=== PATIENT | male | born 1945 | race Caucasian/White ===

== ENCOUNTER 2020-04-17 14:14 | Observation (INO) | payer OTHER ==
[~2020-04-17] VITALS: Ht 175.3 cm; Wt 84.8 kg
[2020-04-17 14:28] VITALS: BP 128/57
--- NOTE | 2020-04-17 14:28 | NUR ---
PT AMBULATED TO BED 4
--- NOTE | 2020-04-17 14:32 | NUR ---
BIB self from home with c/o chest pain today and c/o groin pain x 4 weeks. Pain 8/10 Malagasy speaking only. A, A, Ox4, cooperative, VVS, sinus rhythm in NAD Resp even and unlabored, HOB elevated. Moving all exts w/o difficulty, gait steady Awaiting evaluation by MD Will continue to monitor
[2020-04-17] MEDS ORDERED: NITROGLYCERIN 0.4 MG TAB SL ONE (15:00)
[2020-04-17] MEDS ORDERED: ASPIRIN 325 MG TAB PO ONE (15:00)
[2020-04-17 15:28] LABS: BASOPHILS # (AUTO) 0.1 K/uL (0.00-0.22); BASOPHILS % (AUTO) 1.4 % (0.0-2.0); EOSINOPHILS # (AUTO) 0.4 K/uL (0-0.4); EOSINOPHILS % (AUTO) 6.6 % (0.0-4.0); HEMATOCRIT 36.1 % (36-52); HEMOGLOBIN 12.4 g/dL (12.0-18.0); LYMPHOCYTES # (AUTO) 1.5 K/uL (2.0-11.5); LYMPHOCYTES % (AUTO) 26.2 % (20.5-51.1); MEAN CORPUSCULAR HEMOGLOBIN 32 pg (27-31); MEAN CORPUSCULAR HGB CONC 34 g/dL (33-37); MEAN CORPUSCULAR VOLUME 92.3 fL (80-94); MONOCYTES # (AUTO) 0.5 K/uL (0.8-1.0); MONOCYTES % (AUTO) 9.3 % (1.7-9.3); NEUTROPHILS # (AUTO) 3.2 K/uL (1.8-7.7); NEUTROPHILS % (AUTO) 56.5 % (42.2-75.2); PLATELET COUNT (AUTO) 213 K/uL (140-450); RED BLOOD CELL COUNT(AUTO) 3.91 MIL/uL (4.20-6.10); RED CELL DISTRIBUTION WIDTH 13.9 % (11.6-13.7); WHITE BLOOD COUNT (AUTO) 5.6 K/uL (4.8-10.8)
[2020-04-17 15:47] LABS: ALBUMIN 3.8 g/dL (3.4-5.0); ANION GAP 15.2 (8-16); ASPARTATE AMINOTRANSFERASE 13 U/L (15-37); CHLORIDE 102 mmol/L (98-107); CREATININE 0.9 mg/dL (0.6-1.3); GLUCOSE 123 mg/dL (74-106); LIPASE 96 U/L (73-393); POTASSIUM 3.2 mmol/L (3.5-5.1); SODIUM SERUM 138 mmol/L (136-145); TOTAL BILIRUBIN 0.5 mg/dL (0.0-1.0); UREA NITROGEN, BLOOD 11 mg/dL (7-18)
--- NOTE | 2020-04-17 15:55 | NUR ---
IV started left hand #20g, patient tolerated well. Saline locked
[2020-04-17 16:05] LABS: CREATINE KINASE MB 0.6 ng/mL (0-3.6)
[2020-04-17] MEDS ORDERED: POTASSIUM CHLORIDE 10 MEQ TABER PO ONE (16:15)
--- NOTE | 2020-04-17 16:48 | NUR ---
Patient's at bedside to make arrangements for his admission
--- NOTE | 2020-04-17 17:53 | NUR ---
CONTACT INFORMATION ERIN GARCIA, , KARL [phone]
--- NOTE | 2020-04-17 19:15 | NUR ---
REPORT RECEIVED FROM TERESA MADDOX
--- NOTE | 2020-04-17 19:23 | NUR ---
Detailed report given to VARSHA Carmichael ethylene compressor operator for continuity Orders and meds reviewed, questions answered
--- NOTE | 2020-04-17 19:55 | NUR ---
MD AMBRIZ AT BEDSIDE
[2020-04-17] MEDS ORDERED: ACETAMINOPHEN 325 MG TAB PO PRN (20:35)
[2020-04-17] MEDS ORDERED: DOCUSATE SODIUM 100 MG GELCAP PO PRN (20:35)
[2020-04-17] MEDS ORDERED: HYDROcodone/APAP 7.5/325 MG 1 TAB PO PRN (20:35)
[2020-04-17] MEDS ORDERED: POTASSIUM CHLORIDE 10 MEQ TABER PO PRN (20:35)
[2020-04-17] MEDS ORDERED: guaiFENesin DM 200/20 MG-10 ML 10 ML UDC PO PRN (20:35)
[2020-04-17] MEDS ORDERED: ZOLPIDEM 5 MG TAB PO PRN (20:35)
[2020-04-17] MEDS ORDERED: ONDANSETRON 4 MG/2 ML VIAL IM/IVP PRN (20:35)
[2020-04-17] MEDS ORDERED: NITROGLYCERIN 0.4 MG TAB SL PRN (20:35)
[2020-04-17 20:58] LABS: PROTHROMBIN TIME 10.7 secs (10.8-13.4)
--- NOTE | 2020-04-17 20:59 | NUR ---
PT IS STILL HAVING CHEST DISCOMFORT TO RIGHT SIDE OF CHEST, MEDICATED WITH ADMIT ORDERS FOR NORCO. PAIN 12/21. NO SOB. RESPIRATIONS REGULAR EVEN AND UNLABORED
[2020-04-17] MEDS: METOPROLOL 25 MG TAB PO SCH (21:00)
[2020-04-17 21:07] LABS: CHOL/HDL RATIO 2.9 (1-4.5); FREE T4 (FREE THYROXINE) 1.03 ng/dL (0.76-1.46); MAGNESIUM 2.2 mg/dL (1.8-2.4); PHOSPHORUS 3.4 mg/dL (2.5-4.9); THYROID STIMULATING HORMONE 1.55 uIU/mL (0.34-3.74)
--- NOTE | 2020-04-17 21:15 | NUR ---
RECEIVED CONTINUITY OF CARE FROM ED RN APOLONIA. PT IS AMBULATORY, A/OX3, BREATHING SPONTANEOUSLY ON 02L 02 VIA NC, SATURATING AT 100%. LUNG ARE CTA, ACTIVE BOWEL TONES X4, SKIN IS WARM, DRY, INTACT. PT IS LITHUANIAN SPEAKING WITH LIMITED URDU. VITALS ARE ASSESSED AND WITHIN NORMAL LIMITS. ORIENTED PT TO STAFF, CALL LIGHT, AND ROOM. MRSA SCREEN COMPLETE AND REVIEWED PLAN OF CARE WITH PT. CALL LIGHT IS WITHIN REACH. SAFETY PRECAUTIONS IN PLACE.
--- NOTE | 2020-04-17 21:19 | NUR ---
Patient will be admitted to care of DR AMBRIZ. Admited to TELE. Will go to room 111A. Belongings list completed. Report to POWER MADDOX.
[2020-04-17] MEDS: NACL 0.9% 1,000 ML IV SCH (22:13)
--- NOTE | 2020-04-17 23:06 | NUR ---
PT IS SLEEPING. NO SIGNS OF DISTRESS NOTED.
[2020-04-18] VITALS: BP 96/48
--- NOTE | 2020-04-18 01:11 | NUR ---
PT IS SLEEPING. NO SIGNS OF DISTRESS NOTED.
--- NOTE | 2020-04-18 03:02 | NUR ---
PT IS SLEEPING. NO SIGNS OF DISTRESS NOTED.
[2020-04-18 04:00] VITALS: BP 121/65
--- NOTE | 2020-04-18 04:50 | NUR ---
ASSESSED VITAL SIGNS. VITALS ARE WITHIN NORMAL LIMITS. PT IS IN STABLE CONDITION.
--- NOTE | 2020-04-18 07:00 | NUR ---
RECEIVED HANDOFF REPORT FROM [employer] OPERATIONS INTELLIGENCE OFFICER RN. PT IS GREEK SPEAKING, A&OX4. PT IS ON ROOM AIR. PT HAS ACCESS AT L HAND, 20 G, WITH NORMAL SALINE IS RUNNING AT 60 ML/HR. PT IS AMBULATORY AND SKIN IS INTACT. HOB IS AT 30 DEGREES, BED IN LOW LOCKED POSITION. WILL CONTINUE TO MONITOR CLOSELY.
--- NOTE | 2020-04-18 07:14 | NUR ---
ENDORSED CARE TO AM NURSE. PT IS IN STABLE CONDITION.
[2020-04-18 07:36] LABS: BASOPHILS # (AUTO) 0.1 K/uL (0.00-0.22); EOSINOPHILS # (AUTO) 0.4 K/uL (0-0.4); EOSINOPHILS % (AUTO) 7.2 % (0.0-4.0); HEMATOCRIT 35.8 % (36-52); LYMPHOCYTES # (AUTO) 1.5 K/uL (2.0-11.5); LYMPHOCYTES % (AUTO) 28.3 % (20.5-51.1); MEAN CORPUSCULAR HEMOGLOBIN 31 pg (27-31); MEAN CORPUSCULAR HGB CONC 34 g/dL (33-37); MONOCYTES # (AUTO) 0.4 K/uL (0.8-1.0); NEUTROPHILS # (AUTO) 2.9 K/uL (1.8-7.7); NEUTROPHILS % (AUTO) 55.5 % (42.2-75.2); PLATELET COUNT (AUTO) 206 K/uL (140-450); RED BLOOD CELL COUNT(AUTO) 3.85 MIL/uL (4.20-6.10); WHITE BLOOD COUNT (AUTO) 5.3 K/uL (4.8-10.8)
[2020-04-18 08:00] VITALS: BP 145/71
[2020-04-18] MEDS: METOPROLOL 25 MG TAB PO SCH (08:20)
--- NOTE | 2020-04-18 08:32 | NUR ---
MEDICATIONS ADMINISTERED PER ORDER, PT TOLERATED WELL.
--- NOTE | 2020-04-18 08:42 | NUR ---
PATIENT HAS BEEN SCREENED AND CATEGORIZED MODERATE NUTRITION RISK. PATIENT WILL BE SEEN WITHIN 3-5 DAYS OF ADMISSION. 04/20/20 04/22/[address]
[2020-04-18] MEDS ORDERED: PANTOPRAZOLE 40 MG TABEC PO SCH (09:00)
[2020-04-18] MEDS ORDERED: ECOTRIN 81 MG TABEC PO SCH (09:00)
[2020-04-18] MEDS ORDERED: lisinopriL 5 MG TAB PO SCH (09:00)
[2020-04-18 10:01] LABS: ANION GAP 14.7 (8-16); CHLORIDE 107 mmol/L (98-107); CREATININE 0.9 mg/dL (0.6-1.3); GLUCOSE 97 mg/dL (74-106); POTASSIUM 3.7 mmol/L (3.5-5.1); SODIUM SERUM 142 mmol/L (136-145); UREA NITROGEN, BLOOD 10 mg/dL (7-18)
--- NOTE | 2020-04-18 11:19 | NUR ---
SOCIAL WORK NOTE: Patient's Orientation Unable To Assess Information Provided By ERIN SMITH - SON Comments SW WAS UNABLE TO MEET PATIENT AT BEDSIDE. SW COMPLETED ASSESSMENT WITH PATIENT'S SON, ERIN. Proposal Analyst, Realtionship and Phone Number ERIN GARCIA [phone] Healthcare Power of Agile Java Developer No Does Patient Have a POLST No Identifying Problems No Social Work Triggers Is A Social Work Consult Needed No Mandate Report Filed No Explanation Of Identifying Problems PATIENT IS A 75-YEAR-OLD MALE ADMITTED FOR CHEST PAIN. PATIENT HAS PMHX OF HYPERTENSION AND DYSLIPEDEMIA. ERIN REPORTED PATIENT HAS NO HISTORY OF SUBSTANCE ABUSE OR MENTAL HEALTH. Admitted From Home Pre-Admission Level Of Functioning Status Independent/Ambulatory Prior Resources/Services Used In Last 12 Months No Prior Resources Used Prior DME No Prior DME Used Dialysis Comments ERIN REPORTED THAT PATIENT DOES NOT RECEIVE DIALYSIS. Living Situation Lives With Family House Patient Had Caregiver No Home Support No Caregiver Issues Financial Issues No Known Financial Issue Referral To The Financial Counselor Needed No Factors/Needs No D/C Needs Identified Pt/Rep Participated In Discharge Plan Yes Patient/Family Agress With Discharge Plan Yes Discharge Plan Comments TENTATIVE DISCHARGE PLAN IS FOR PATIENT TO RETURN HOME. DC Plan Status Initiated
--- NOTE | 2020-04-18 11:50 | NUR ---
DC PLANNIN YRS OLD MALE PATIENT WAS ADMITTED FROM HOME WITH A DX OF CHEST PAIN . PT HAS A HX OF HTN, HLD. CXR SHOWED NO ACUTE CARDIOPULMONARY DISEASE. VENOUS DOPPLER NO DVT. STARTED IVF, CONTINUE HOME MEDS. CONSULTED WITH STEAM AND POWER SUPERVISOR DR ROJAS. DC PLAN TO GO HOME WHEN STABLE. CM TO FOLLOW.
[2020-04-18 12:00] VITALS: BP 120/57
--- NOTE | 2020-04-18 12:05 | NUR ---
PT SITTING UP IN BED. BP 120/57, HR 64, TEMP 97.5 ORALLY, O2 98%. WILL CONTINUE TO MONITOR.
[2020-04-18] MEDS: NACL 0.9% 1,000 ML IV SCH (13:35)
[2020-04-18] MEDS ORDERED: ASPI-1822 PO (14:46)
[2020-04-18] MEDS ORDERED: ATOR40TA PO (14:46)
[2020-04-18 16:19] VITALS: BP 126/60
--- NOTE | 2020-04-18 16:30 | NUR ---
PT DISCHARGED AT THIS TIME IN STABLE CONDITION. DISCHARGE INSTRUCTIONS AND PRESCRIPTIONS GIVEN, PT VERBALIZED UNDERSTANDING. BELONGINGS VERIFIED AND RETURNED TO PT. IV SITE REMOVED WITH MINIMAL BLOOD LOSS AND LUMEN INTACT. PNA AND FLU VACCINES REFUSED. ID BANDS REMOVED. PT SIGNED DISCHARGE PAPERWORK. PT ESCORTED OFF UNIT ON FOOT AND PICKED UP IN PRIVATE CARE BY FAMILY MEMBER GOING HOME.
[2020-04-18] MEDS ORDERED: ATORVASTATIN 20 MG TAB PO SCH (17:00)
[2020-04-19 10:22] LABS: T4 (THYROXINE) 6.1 ug/dL (4.5-12.0)
== END 2020-04-18 17:26 | disposition home or self-care (01) ==
LOC: MED 14:14 → MTU 18:11
PROVIDERS: ADMIT Family Medicine; ATTEND Family Medicine
DX: R07.89 Other chest pain (principal); E87.6 Hypokalemia; I73.9 Peripheral vascular disease, unspecified; I10 Essential (primary) hypertension; R94.31 Abnormal electrocardiogram [ECG] [EKG]; E78.5 Hyperlipidemia, unspecified; E78.00 Pure hypercholesterolemia, unspecified; F17.210 Nicotine dependence, cigarettes, uncomplicated; Z79.899 Other long term (current) drug therapy
CPT/HCPCS: 36415; 71045; 80048; 80053; 80061; 82150; 82550; 82553; 83036; 83690; 83735; 83880; 84100; 84439; 84443; 84484; 85025; 85610; 85730; 87081; 93005; 93925; 93970; 96360; 96361; 96372; 99285; G0378; J1644; J7030; Q0092; 84436; 84479

== ENCOUNTER 2021-02-12 13:49 | Emergency (ER) | payer OTHER ==
[~2021-02-12] VITALS: Ht 175.3 cm; Wt 80.7 kg
[~2021-02-12 13:49] MED LIST: ASPI-1822 PO; ATOR40TA PO
[2021-02-12 14:13] VITALS: BP 150/75
[2021-02-12 16:49] LABS: BASOPHILS # (AUTO) 0.1 K/uL (0.00-0.22); BASOPHILS % (AUTO) 0.9 % (0.0-2.0); EOSINOPHILS # (AUTO) 0.2 K/uL (0-0.4); EOSINOPHILS % (AUTO) 2.8 % (0.0-4.0); HEMATOCRIT 37.2 % (36-52); HEMOGLOBIN 12.7 g/dL (12.0-18.0); LYMPHOCYTES # (AUTO) 1.6 K/uL (2.0-11.5); LYMPHOCYTES % (AUTO) 27.2 % (20.5-51.1); MEAN CORPUSCULAR HEMOGLOBIN 32 pg (27-31); MEAN CORPUSCULAR HGB CONC 34 g/dL (33-37); MEAN CORPUSCULAR VOLUME 94.9 fL (80-94); MONOCYTES # (AUTO) 0.5 K/uL (0.8-1.0); MONOCYTES % (AUTO) 8.1 % (1.7-9.3); NEUTROPHILS # (AUTO) 3.7 K/uL (1.8-7.7); PLATELET COUNT (AUTO) 247 K/uL (140-450); RED BLOOD CELL COUNT(AUTO) 3.92 MIL/uL (4.20-6.10)
[2021-02-12 17:00] LABS: CARBON DIOXIDE 24.9 mmol/L (21-32); CHLORIDE 98 mmol/L (98-107); CREATININE 1.2 mg/dL (0.6-1.3); GLUCOSE 97 mg/dL (74-106); SODIUM SERUM 135 mmol/L (136-145); UREA NITROGEN, BLOOD 14 mg/dL (7-18)
[2021-02-12 17:04] LABS: ANION GAP 14.8 (8-16); POTASSIUM 2.7 mmol/L (3.5-5.1)
[2021-02-12] MEDS ORDERED: POTASSIUM CHLORIDE 10 MEQ TABER PO ONE ×2 (17:35→17:45)
--- NOTE | 2021-02-12 17:39 | NUR ---
PT AMBULATED TO BED 06
--- NOTE | 2021-02-12 17:55 | NUR ---
# 16 FR De La Paz catheter with 10 ml utilizing sterile technique. Immediate return of 400 ml clear/yellow urine noted. Bedside drainage bag placed below level of bladder. Urine sample collected and sent to lab. Pt tolerated procedure well.
--- NOTE | 2021-02-12 17:55 | NUR ---
75 Y/O MALE C/O PAINFUL URINATION 09/20 DESCRIBES BURNING WITH DIFFICULTY STARTING STREAM. PT STATES HE CAME FROM URGENT CARE AND REFERRED DUE TO BPH AND MEDICATIONS ARE NOT RELIEVING SYMPTOMS. DENIES DISCHARGE, DENIES N/V, DENIES FEVER/CHILLS. PMH: HTN, HLD, AND BPH NKA
--- NOTE | 2021-02-12 18:00 | NUR ---
De La Paz leg bag with Flip-flow drainage valve attached to patient's R leg. Patient explained how to drain and discard urine from catheter leg bag. Patient successfully verbalize how to use bag.
--- NOTE | 2021-02-12 18:02 | NUR ---
PT CURRENTLY RESTING BEDSIDE WITH EYES OPEN. BED IN LOWEST POSITION WITH SIDERAIL X2 UP. BED LOCKED. VITAL SIGNS STABLE. WILL CONTINUE TO MONITOR
[2021-02-12 18:15] VITALS: BP 139/67
== END 2021-02-12 18:44 | disposition home or self-care (01) ==
LOC: MED 13:49
DX: N32.0 Bladder-neck obstruction (principal); E87.6 Hypokalemia; Z79.899 Other long term (current) drug therapy; Z79.82 Long term (current) use of aspirin
CPT/HCPCS: 36415; 51702; 80048; 81002; 85025; 87086; 99284